=== PATIENT | female | born 1965 | race Caucasian/White ===

== ENCOUNTER 2024-05-16 10:52 | Outpatient (AMB) | payer OTHER, SELFPAY ==
[2024-05-16 11:09] VITALS: BP 133/91; PULSE 66; RESP 18; TEMP 36.3; O2SAT 96; BMI 32.1
--- NOTE | 2024-05-16 11:09 | PD.ORTHCLVIS ---
Vital signs 05/16/24 11:09 Height 1.63 m Height Method Stated Weight 85.332 kg Weight Measurement Method Standing Scale BMI 32.1 BP 133/91 H Blood Pressure Source Automatic Cuff Blood Pressure Location Left Upper Arm Position Sitting Respiration 18 Pulse 66 Pulse Source Monitor Temp 97.4 F Temp Source Temporal Artery Scan Pulse Oximetry (%) 96 Oxygen Delivery Method Room Air Med/Allergies Allergies & Medications Allergies adhesive tape Allergy (Verified 05/16/24 11:09) Blister hydromorphone [From Dilaudid] Allergy (Verified 05/16/24 11:09) Hypotension latex Allergy (Verified 05/16/24 11:09) Redness of Skin Medication Reconciliation acetaminophen 500 mg tablet (Tylenol Extra Strength) 500 mg PO Q6H PRN Pain 02/06/20 [History Confirmed 05/16/24] black cohosh 540 mg capsule 540 mg PO QDAY 02/06/20 [History Confirmed 05/16/24] carvedilol 3.125 mg tablet 3.125 mg PO DAILY 02/06/20 [History Confirmed 05/16/24] evening primrose oil 500 mg capsule 500 mg PO DAILY 02/06/20 [History Confirmed 05/16/24] [id number]-cesmvjieq-vitC capsule (Glucosamine Complex-MSM capsule) 1 cap PO DAILY 02/06/20 [History Confirmed 05/16/24] ibuprofen 200 mg capsule (Motrin IB) 200 mg PO Q6H PRN Pain 02/06/20 [History Confirmed 05/16/24] losartan 100 mg-hydrochlorothiazide 25 mg tablet 1 tab PO QDAY 02/06/20 [History Confirmed 05/16/24] multivitamin (Multiple Vitamins tablet) 1 tab PO QAM 02/06/20 [History Confirmed 05/16/24] meloxicam 7.5 mg tablet 7.5 mg PO QDAY #45 tabs 11/06/23 [Rx Confirmed 05/16/24] meloxicam 7.5 mg tablet 7.5 mg PO QDAY #45 tabs 12/14/23 [Rx Confirmed 05/16/24] hydrocodone 5 mg-acetaminophen 325 mg tablet 1 tab PO BID PRN pain #6 tabs 03/20/24 [Rx Confirmed 05/16/24] Subjective Visit Visit for: follow up visit and knee Immunization / Flu Flu Vaccine in the Last 12 Months: No Flu Vaccine Exclusion Criteria: No Exclusion Criteria History of Present Illness Chief complaint: F/U KNEE PAIN Drea is a pleasant 58-year-old female who presents today for bilateral knee pain with the left greater than the right. She has had 4 arthroscopic meniscal surgeries. She has valgus alignment and she reports the knee is affecting her quality life and happiness. The pain is on the lateral aspect of her knee. She is trying anti-inflammatories physical therapy and a cortisone injection. The cortisone injection did not provide great relief. She reports that after every surgery she gets pain relief for about 2 years and then the pain occurs again. She reports that her knee pain improved with the injection. Personal History Red flag PMH: smoker (NON SMOKER ) Pain Pain level (0-10): 2 Pain duration: CONSTANT Pain location: inside (medial) Pain quality: aching Pain timing: increases with activity Associated signs & symptoms: none Ambulatory data Ambulatory device: none Treatments Number of previous injections: 1 Improvement with previous injections: No Improvement with PT: No Improvement with NSAIDS: no Review of Systems Review of Systems: All systems negative unless otherwise noted in HPI. Exam Exam Patient is in no acute distress and is cooperative with the examination today. Breathing is nonlabored. Patient has a normal mood and affect. Bilateral extremities were evaluated and demonstrates sensation intact to light touch. Palpable pedal pulses are present. No significant edema is present. Bilateral hips were examined. The patient has no pain with log roll of the hips. Internal rotation to 30 degrees and external rotation to 30 degrees is painless. Negative FADIR. Right knee was examined today. The right knee is in reasonable alignment. Range of motion from 0-120 degrees. Knee is stable to varus and valgus as well as AP translation with <5mm. Patient has a negative McMurrays. There is no pain with patellofemoral compression and no crepitus noted. The knee is nontender to palpation. Left knee was examined today. The left knee is in Valgusalignment. Range of motion from [0-115] degrees. Knee is stable to varus and valgus as well as AP translation with <5mm. Patient has a [negative] McMurrays. There is [no] pain with patellofemoral compression and [no] crepitus noted. Laterally Tender to palpation xrays demonstrate moderate joint space narrowing and minimal osteophytes Assessment and Plan Problem List (1) Bilateral knee pain: Status: Acute Plan: Patient is a pleasant 58-year-old female with bilateral knee pain and bilateral osteoarthritis. The left side is worse than the right. We discussed that she has a meniscal tear on MRI. We discussed that degenerative meniscal tears are typically treated nonoperatively. X-rays do not show significant arthritis. We will continue with conservative treatment (2) Bilateral primary osteoarthritis of knee: Status: Acute Office Procedures GNS Level of Care Nursing/Assessment Patient Status: Established Patient Nursing Assessment/Reassesment: Medication Reconciliation, Update PMH in EMR and Vital Signs Coordination of Care: Complex Care and Chronic Disease 1-5, Education Complex Pt/Fam, Consent,records obtained, informed consent, Results/Orders obtained and Staff clarify orders Established Patient Charge Established Patient Point Assignment: 95 Established Patient Point Charge: EP Level 3 (80-115) Past Medical History Past Medical History Have you ever been diagnosed with any of the following: Neurological Problems Seizures: No Migraine: Yes Cardiology Problems Congestive Heart Failure: No Edema: No Cellulitis: No Hypertension: Yes (TAKES MED) Varicose Veins: No Respiratory Problems Chronic Obstructive Pulmonary Disease (COPD): No Smoking: No Smoking Exposure: No Stomache/Intestinal Problems Hepatitis: No Genital/Urinary Problems Renal Disease: No Musculoskeletal Problems Gout: Yes Fractures: Yes (RIGHT FOOT SURG) Endocrine Problems Diabetes Mellitus Type 1: No Diabetes Mellitus Type 2: Yes (TAKES PO MED) Other Problems Hospitalization: No Shingles: No Falls: No Blood Transfusions: No Blood Transfusion Reaction: No Anesthesia Reactions: Yes (GI UPSET) Chemotherapy: No Radiation Therapy: No MRSA: No Chicken Pox: No Measles: No Mumps: No Cancer: No Surgical History Pacemaker: No
== END 2024-05-16 11:26 | disposition home or self-care (01) ==
LOC: HODSRG 10:52
PROVIDERS: PCP Internal Medicine; Referring Provider Internal Medicine; Supervising Provider Orthopaedic Surgery Adult Reconstructive Orthopaedic Surgery; Visit Provider Orthopaedic Surgery Adult Reconstructive Orthopaedic Surgery
DX: M25.561 Pain in right knee (principal); M25.562 Pain in left knee; M17.0 Bilateral primary osteoarthritis of knee; M21.062 Valgus deformity, not elsewhere classified, left knee; I10 Essential (primary) hypertension; E11.9 Type 2 diabetes mellitus without complications
CPT/HCPCS: 99213; G0463